=== PATIENT | male | born 1990 | race American Indian/Alaskan Native ===

== ENCOUNTER 2017-05-28 09:52 | Emergency (ER) | payer SELFPAY ==
--- NOTE | 2017-05-28 10:25 | Emergency Department Report ---
Chief Complaint: Extremity Injury, Lower Stated Complaint: RT BIG TOE SWOLLEN PAIN Time Seen by Provider: 05/28/17 10:23 - HPI History of Present Illness: PT c/o R great toe pain x 1 week. PT states he tried to pull the skin back but he has since noticed pus drainage. - ROS Review of Systems: - fevers - chills - Exam Vital Signs: Vital Signs 05/28/17 10:16 Temperature 98.7 F Pulse Rate 56 L Respiratory 18 Rate Blood Pressure 120/82 O2 Sat by Pulse 100 Oximetry Physical Exam: R great toe nail ingrown MSE screening note: Focused history and physical exam performed. Due to findings the following was ordered: meds ED Disposition for MSE Condition: Stable
[2017-05-28] MEDS ORDERED: MARCAINE 0.5% INFILTRATI ONE (10:26)
[2017-05-28] MEDS ORDERED: TRIPLE ANTIBIOTIC TP ONE (11:33)
[2017-05-28] MEDS ORDERED: MOTRIN PO ONE (11:33)
--- NOTE | 2017-05-28 11:37 | Emergency Department Report ---
ED Extremity Problem HPI - General Chief complaint: Extremity Injury, Lower Stated complaint: RT BIG TOE SWOLLEN PAIN Time Seen by Provider: 05/28/17 10:23 Source: patient Mode of arrival: Ambulatory Limitations: No Limitations - History of Present Illness Initial comments: PT c/o R great toe pain and swelling x 1 week. PT states he has a hx of ingrown toe nails and he tried to remove it himself. PT states after he tried to remove the nail, the skin became swollen and changed colors. also, he noticed drainage. pts tdap is ONUR ROJAS Complaint: extremity pain -: Gradual, week(s) (one ) Location: right, toe (great ) History of Same: Yes -: No fever Radiation: none Severity scale (0 -10): 7 Quality: sharp Consistency: constant Improves with: nothing Worsens with: weight bearing, walking, exertion, palpation, other (trying to dig nail out ) Associated Symptoms: rash (change in color of skin around nail bed ). denies: fever, myalgias - Related Data Previous Rx's Medication Instructions Recorded Last Taken Type Acetaminophen/Codeine [Tylenol #3] 1 tab PO Q6H PRN #10 tab 05/28/17 Unknown Rx Cephalexin [Keflex] 500 mg PO Q6HR #28 capsule 05/28/17 Unknown Rx Ibuprofen [Motrin] 600 mg PO Q8H PRN #15 tablet 05/28/17 Unknown Rx Sulfamethoxazole/Trimethoprim 1 each PO BID #14 tablet 05/28/17 Unknown Rx [Bactrim DS TAB] Allergies Allergy/AdvReac Type Severity Reaction Status Date / Time No Known Allergies Allergy Unverified 05/28/17 10:19 ED Review of Systems ROS: Stated complaint: RT BIG TOE SWOLLEN PAIN Other details as noted in HPI Comment: All other systems reviewed and negative Constitutional: denies: chills, fever Gastrointestinal: denies: nausea, vomiting Musculoskeletal: as per HPI, arthralgia Skin: as per HPI, change in color, change in hair/nails ED Past Medical Hx - Past Medical History Previous Medical History?: No - Surgical History Past Surgical History?: No - Social History Smoking Status: Current Every Day Smoker Substance Use Type: Alcohol - Medications Home Medications: Home Medications Medication Instructions Recorded Confirmed Last Taken Type Acetaminophen/Codeine [Tylenol #3] 1 tab PO Q6H PRN #10 tab 05/28/17 Unknown Rx Cephalexin [Keflex] 500 mg PO Q6HR #28 capsule 05/28/17 Unknown Rx Ibuprofen [Motrin] 600 mg PO Q8H PRN #15 tablet 05/28/17 Unknown Rx Sulfamethoxazole/Trimethoprim 1 each PO BID #14 tablet 05/28/17 Unknown Rx [Bactrim DS TAB] ED Physical Exam - General Limitations: No Limitations General appearance: alert, in no apparent distress - Head Head exam: Present: atraumatic, normocephalic, normal inspection - Eye Eye exam: Present: normal appearance. Absent: PERRL, EOMI, conjunctival injection, nystagmus - ENT ENT exam: Present: normal exam, mucous membranes moist, normal external ear exam - Neck Neck exam: Present: normal inspection, full ROM - Respiratory Respiratory exam: Present: normal lung sounds bilaterally. Absent: respiratory distress - Cardiovascular Cardiovascular Exam: Present: regular rate, normal rhythm, normal heart sounds - Extremities Exam Extremities exam: Present: full ROM, tenderness, normal capillary refill - Expanded Lower Extremity Exam Right Foot/Toe exam: Present: full ROM, tenderness, swelling, erythema. Absent: normal inspection (R great toe nail ingrown, medial skin fold edematous and erythematous ), amputation, puncture wound Neuro vascular tendon exam: Present: no vascular compromise. Absent: pulse deficit, abnormal cap refill - Back Exam Back exam: Present: normal inspection, full ROM - Neurological Exam Neurological exam: Present: alert, oriented X3, normal gait - Psychiatric Psychiatric exam: Present: normal affect, normal mood - Skin Skin exam: Present: warm, dry, intact, erythema (to R great toe ). Absent: normal color ED Course Vital Signs 05/28/17 05/28/17 05/28/17 10:16 12:31 12:34 Temperature 98.7 F 98.4 F 98.4 F Pulse Rate 56 L 51 L 51 L Respiratory 18 14 14 Rate Blood Pressure 120/82 Blood Pressure 113/83 113/83 [Right] O2 Sat by Pulse 100 99 99 Oximetry - Reevaluation(s) Reevaluation #1: 05/28/17 11:38 PT tolerated ingrown nail removal without any immediate complications. - I & D Right Medial Distal Toe Type of Procedure: Simple Site: R great toe I & D Procedure: betadine prep, sterile drapes applied, sterile dressing applied Progress: 6 mls Bupivicane used to anaesthetize the R great toe. (digital block) Then curved hemastates used to grasp ingrown nail and lift from nail fold. scissors used to cut ingrown nail. - Pulse Oximetry Interpretation Digit-Finger Initial Pulse Oximetry Readin Actions Taken: none ED Medical Decision Making - Differential Diagnosis cellulitis, ingrown toe nail Critical Care Time: No Critical care attestation.: If time is entered above; I have spent that time in minutes in the direct care of this critically ill patient, excluding procedure time. ED Disposition Clinical Impression: Ingrown nail of great toe of right foot, Ingrowing nail with infection Disposition: TO HOME OR SELFCARE Is pt being admited?: No Does the pt Need Aspirin: No Condition: Stable Instructions: Cellulitis (ED), Ingrown Nail (ED) Additional Instructions: Do not cut your toe nails extremely short wear proper fitting shoes apply otc antibiotic ointment to R great toe Finish all antibiotics IF you are needing to take Tylenol # 3 for your pain, do not drink alcohol or drive car or forklift after Try controlling your pain with Motrin first Return to the ED if you have increase swelling, pain or drainage or concerns Prescriptions: Acetaminophen/Codeine [Tylenol #3] 1 tab PO Q6H PRN #10 tab PRN Reason: Pain , Severe (7-10) Cephalexin [Keflex] 500 mg PO Q6HR #28 capsule Ibuprofen [Motrin] 600 mg PO Q8H PRN #15 tablet PRN Reason: Pain Sulfamethoxazole/Trimethoprim [Bactrim DS TAB] 1 each PO BID #14 tablet Referrals: COBY CARREON MD [Primary Care Provider] - 3-5 Days CHANCE VANESSA MD [Staff Physician] - 3-5 Days [facility] [Outside] - 3-5 Days Forms: Work/School Release Form(ED) Time of Disposition: 11:54
[2017-05-28 12:32] VITALS: BP 113/83
== END 2017-05-28 12:15 | disposition home or self-care (01) ==
LOC: ED 09:52
DX: L60.0 Ingrowing nail (principal); F17.210 Nicotine dependence, cigarettes, uncomplicated
CPT/HCPCS: 99282; A6250